=== PATIENT | male | born 1990 | race Caucasian/White ===

== ENCOUNTER 2019-01-18 23:12 | Emergency (ER) | payer OTHER ==
[~2019-01-18] VITALS: Ht 172.7 cm; Wt 59.4 kg
[2019-01-18 23:16] VITALS: BP 138/78; PULSE 82; RESP 20; Ht 172.7 cm; Wt 59.4 kg
[2019-01-19] MEDS ORDERED: BENZ-6 PO (02:21)
[2019-01-19] MEDS ORDERED: BENZ1LOZ52 MM (02:21)
[2019-01-19] MEDS ORDERED: D-ME473S2 PO (02:21)
--- NOTE | 2019-01-19 02:27 | ERD ---
ER Documentation Chief Complaint Chief Complaint ST and cough since yesterday. +KAHN. body aches +gen rashes to body x3 days HPI Patient is a 28-year-old male who presents to the ER for concerns of throat pain, cough, headache and generalized body aches which started yesterday. Patient denies any fevers. Patient states cough is dry in nature. Patient has no nausea, vomiting, abdominal pain or diarrhea. Patient has no neck pain or neck stiffness. Patient also reports scattered erythematous, itchy lesions on his body. Patient states he has a small area on his right lower leg as well as on his back. Patient also has a few lesions on his right forearm. Patient denies any new creams, lotions, medications or foods. Patient denies any environmental changes. ROS All systems reviewed and are negative except as per history of present illness. Medications Home Meds Active Scripts Benzocaine/Menthol* (Cepacol* Sore Throat Lozenges) 1 Each Lozenge, 1 EACH MM q2h PRN for SORE THROAT, #20 LOZENGE Prov:KARLOS MCNAIR PA-C 01/19/19 Benzonatate* (Tessalon Perle*) 100 Mg Capsule, 100 MG PO Q8H PRN for COUGH, #20 CAP Prov:KARLOS MCNAIR PA-C 01/19/19 Dextromethorphan Hb-Promethazine Hcl* (Promethazine DM* Syrup) 473 Ml Syrup, 5 ML PO Q6 PRN for COUGH, #4 OZ Prov:KARLOS MCNAIR PA-C 01/19/19 Allergies Allergies: Coded Allergies: No Known Drug Allergy (Verified Allergy, Unknown, 01/18/19) FmHx Family History: No diabetes Physical Exam Vitals Vital Signs Date Temp Pulse Resp B/P (MAP) Pulse Ox O2 O2 Flow FiO2 Time Delivery Rate 01/18/19 98.4 82 20 138/78 98 23:16 (98) Physical Exam GENERAL: Well-developed, well-nourished male. Appears in no acute distress. Speaking in full sentences HEAD: Normocephalic, atraumatic. No deformities or ecchymosis. EYE: Pupils equal, round, and reactive to light. EOMs intact. No conjunctival erythema. No eye discharge. ENT: External ear without any masses or tenderness. Auditory canals clear bilaterally. TM visualized bilaterally, non-erythematous, non-bulging. Nasal mucosa pink with no discharge. Oropharynx is pink without any tonsillar erythema or exudates. No uvula deviation. No kissing tonsils. NECK: Supple. No meningismus. Normal ROM of the neck. LUNG: Clear to auscultation bilaterally. No rhonchi, wheezing, rales or coarse breath sounds. HEART: Regular rate and rhythm. No murmurs, rubs or gallops. EXTREMITES: Equal pulses bilaterally. No peripheral clubbing, cyanosis or edema. No unilateral leg swelling. NEUROLOGIC: Alert and oriented to person, place and time. Moving all four extremities. 5/5 strength in all extremities. Normal speech. Steady gait. SKIN: 2-3 macular papular lesions noted on the patient's right forearm, right lower leg and left back. Lesions are slightly erythematous and scabbed in appearance. No streaking. No warmth. No lesions noted in the patient's web spaces. negative Nikolsky sign. Procedures/MDM MEDICAL DECISION MAKING: This is a 28-year-old male who presents the ER for concerns of throat pain, cough and headache for the last day. Patient also reports clusters of erythematous maculopapular lesions on his arms and legs x 3 days. Vital signs were reviewed. Patient was afebrile. Patient was not hypoxic. Patient likely has a viral URI. Low suspicion for pneumonia, meningitis, sinusitis, otitis externa, acute otitis media, strep pharyngitis, epiglottitis or peritonsillar abscess. Patient did state that his rash is itchy. Rash may be allergic in nature. Trial of Benadryl was advised. Patient was advised to follow-up with tennis racket repairer. Low suspicion for measles, syphilis, necrotizing fasciitis, Gerald Jah syndrome, fungal infection or severe bacterial infection. Sent was nontoxic, [id number] prior to discharge. DISCHARGE: At this time, patient is stable for discharge and outpatient management. Supportive therapies such as OTC throat lozenges, salt water gurgles, popsicles and jello discussed. I have instructed the patient to follow-up with his/her primary care physician in 1-2 days. I have instructed the patient to promptly return to the ER for any new or worsening symptoms including increased pain, swelling, fever, nausea, vomiting, weakness or difficulty breathing. The patient and/or family expressed understanding of and agreement with this plan. All questions were answered. Home care instructions were provided. Disclaimer: Inadvertent spelling and grammatical errors are likely due to EHR/dictation software use and do not reflect on the overall quality of patient care. Also, please note that the electronic time recorded on this note does not necessarily reflect the actual time of the patient encounter. Departure Diagnosis: Primary Impression: URI (upper respiratory infection) URI type: unspecified URI Qualified Codes: J06.9 - Acute upper respiratory infection, unspecified Additional Impression: Rash Condition: Fair Patient Instructions: Self-Care for Skin Rashes Referrals: RADHA NOEL MD,SHADY ALLEN,FER BARNES,TIP MELVIN,ARELIS LOYD,JONAH BENJAMIN Additional Instructions: Follow-up with a tennis racket repairer for further management of your rash. Take Benadryl for itching. Call your primary care doctor TOMORROW for an appointment during the next 1-2 days.See the doctor sooner or return here if your condition worsens before your appointment time. KARLOS MCNAIR PA-C Jan 19, 2019 02:27
== END 2019-01-19 02:51 | disposition home or self-care (01) ==
LOC: FTE 23:12
DX: J06.9 Acute upper respiratory infection, unspecified (principal); R21 Rash and other nonspecific skin eruption
CPT/HCPCS: 99283

== ENCOUNTER 2019-06-17 13:23 | Emergency (ER) | payer OTHER ==
[~2019-06-17] VITALS: Ht 175 cm; Wt 60.6 kg
[~2019-06-17 13:23] MED LIST: BENZ-6 PO; BENZ1LOZ52 MM; D-ME473S2 PO
[2019-06-17 13:30] VITALS: BP 122/70; PULSE 96; RESP 16; Ht 175 cm; Wt 60.6 kg
== END 2019-06-17 14:43 | disposition home or self-care (01) ==
LOC: FTE 13:23
DX: S01.91XA Laceration without foreign body of unspecified part of head, initial encounter (principal); W25.XXXA Contact with sharp glass, initial encounter; Y92.9 Unspecified place or not applicable
CPT/HCPCS: 99283